=== PATIENT | male | born 1975 | race Two or more races ===

== ENCOUNTER 2018-10-09 15:04 | Inpatient (IN) | payer OTHER ==
[~2018-10-09] VITALS: Ht 180.3 cm; Wt 90.7 kg
[2018-10-17] MEDS ORDERED: OMEPRAZOLE PO (14:59)
[2018-10-25] MEDS ORDERED: OMEPRAZOLE10 MG PO (08:20)
[2018-11-04] MEDS ORDERED: LEVAQUIN750 MG PO (15:41)
[2018-11-04] MEDS ORDERED: FLAGYL500MG PO (15:41)
[2018-11-04] MEDS ORDERED: MIRALAX17 GM PO (15:41)
[2018-11-04] MEDS ORDERED: TRAMADOL HCL50 MG PO (15:41)
[2018-11-07] MEDS ORDERED: MIRALAX17 GM PO (05:15)
[2018-11-07] MEDS ORDERED: LEVAQUIN750 MG PO (05:15)
[2018-11-07] MEDS ORDERED: FLAGYL500MG PO (05:15)
[2018-11-07] MEDS ORDERED: TRAMADOL HCL50 MG PO (05:15)
== END 2018-11-07 13:56 | disposition home or self-care (01) | DRG 335 ==
LOC: SURH 10-17 12:30 → SURG 10-25 05:35 → O/R 10-25 05:35 → SURH 10-25 07:00 → SURG 10-25 13:13 → SURH 11-02 18:20
PROVIDERS: ADMIT Surgery
PROC: 0WUF0JZ Supplement Abdominal Wall with Synthetic Substitute, Open Approach (ICD-10-PCS; 2018-10-25)
PROC: 0HX7XZZ Transfer Abdomen Skin, External Approach (ICD-10-PCS; 2018-10-25)
PROC: 0DNC0ZZ Release Ileocecal Valve, Open Approach (ICD-10-PCS; principal; 2018-10-25 07:00)
PROC: 02HV33Z Insertion of Infusion Device into Superior Vena Cava, Percutaneous Approach (ICD-10-PCS; 2018-10-28)
PROC: 0DH67UZ Insertion of Feeding Device into Stomach, Via Natural or Artificial Opening (ICD-10-PCS; 2018-10-29)
PROC: 3E0G76Z Introduction of Nutritional Substance into Upper GI, Via Natural or Artificial Opening (ICD-10-PCS; 2018-10-29)
PROC: 4A033R1 Measurement of Arterial Saturation, Peripheral, Percutaneous Approach (ICD-10-PCS; 2018-11-02)
PROC: 8E0ZXY6 Isolation (ICD-10-PCS; 2018-11-02)
DX: K43.0 Incisional hernia with obstruction, without gangrene (principal); J18.1 Lobar pneumonia, unspecified organism; K91.31 Postprocedural partial intestinal obstruction; E44.0 Moderate protein-calorie malnutrition; A04.72 Enterocolitis due to Clostridium difficile, not specified as recurrent; K42.0 Umbilical hernia with obstruction, without gangrene; R53.1 Weakness; Z88.0 Allergy status to penicillin; E83.42 Hypomagnesemia; G89.18 Other acute postprocedural pain; F45.42 Pain disorder with related psychological factors; E87.6 Hypokalemia; K76.0 Fatty (change of) liver, not elsewhere classified; R09.02 Hypoxemia; B95.61 Methicillin susceptible Staphylococcus aureus infection as the cause of diseases classified elsewhere